=== PATIENT | female | born 1950 | race Caucasian/White ===

== ENCOUNTER → 2016-12-31 | Outpatient (CLI) | payer MEDICARE, OTHER ==
[~2016-12-31] MED LIST: AMLO5TAB2 PO; CIPR500T3 PO; DULO30CA2 PO; GABA300C10 PO; LORA0.5T PO; LOSA100T6 PO; METH2.5T PO; METO-99 PO; METR500T PO; MULT-658 PO; OXYC1TAB7 PO; PANT40TA5 PO; SERT100T5 PO; ZOLP5TAB6 PO
== END | disposition home or self-care (01) ==
LOC: CVU 08:20
PROVIDERS: ATTEND Nurse Practitioner
DX: M25.474 Effusion, right foot (principal); M25.561 Pain in right knee; M25.562 Pain in left knee
CPT/HCPCS: 93970

== ENCOUNTER → 2018-03-10 | Outpatient (CLI) | payer MEDICARE, OTHER | END | disposition home or self-care (01) | LOC: CFH 10:47 | PROVIDERS: ATTEND Nurse Practitioner | DX: Z12.31 Encounter for screening mammogram for malignant neoplasm of breast (principal); Z13.820 Encounter for screening for osteoporosis; M85.88 Other specified disorders of bone density and structure, other site | CPT/HCPCS: 77080; 77067 ==

== ENCOUNTER 2019-01-23 07:54 | Inpatient (IN) | payer MEDICARE, OTHER ==
[~2019-01-23] VITALS: Ht 170.2 cm; Wt 101.2 kg
[~2019-01-23 07:54] MED LIST changes: +AMLO-150 PO; -AMLO5TAB2 PO; +LOSA100T14 PO; -LOSA100T6 PO; +SERT100T32 PO; -SERT100T5 PO
[2019-01-23] MEDS ORDERED: SODIUM CHLORIDE FLUSH 10ML SYR IVF ONE (08:00)
--- NOTE | 2019-01-23 08:12 | NUR ---
LATE NOTE ENTRY FOR 0756: Pt presents to ED by EMS with c/o two days of diffuse abdominal pain in all four quadrants and some abdominal distension. Pt states she has a past medical history of colitis and states the symptoms she is experiencing today are "the same". Pt recieved 100 mcg of Fentanyl and 4 mg of Zofran en route to ED by EMS. Pt recieved PIV en route by EMS in left AC 18 g. Pt states, "my pain is about a 6 now." NADN. Pt connected to NIBP and continous pulse ox. Both bedrails up for safety measures. Call light within reach. No needs expressed at this time. Pt denies cp, sob, diarrhea, blood in vomit, pain with urination, or increase in frequency of urination.
[2019-01-23 08:28] LABS: ALANINE AMINOTRANSFERASE 32 U/L (12-78); ALBUMIN 3.9 g/dL (3.4-5.0); ANION GAP 10 mmol/L (5-15); CALCIUM 9.6 mg/dL (8.5-10.1); CHLORIDE 103 mmol/L (98-107); CREATININE 1.47 mg/dL (0.55-1.02)
[2019-01-23 08:30] LABS: ALKALINE PHOSPHATASE 103 U/L (45-117); BILIRUBIN,TOTAL 0.9 mg/dL (0.2-1.0); TOTAL PROTEIN 8.4 g/dL (6.4-8.2)
--- NOTE | 2019-01-23 09:08 | NUR ---
Pt aware of need for urine sample. Pt provided call light within reach.
[2019-01-23 09:29] LABS: BASOPHILS # (AUTO) 0.02 x10^3/uL (0-0.1); BASOPHILS % (AUTO) 0 % (0-1); EOSINOPHILS % (AUTO) 0 % (1-7); LYMPHOCYTES # (AUTO) 0.93 x10^3/uL (1-3.4); LYMPHOCYTES % (AUTO) 6 % (22-44); MD NO; MEAN CORPUSCULAR HEMOGLOBIN 31.7 pg (27.0-34.8); MEAN CORPUSCULAR HGB CONC 33.7 g/dL (32.4-35.8); MEAN PLATELET VOLUME 9.8 fL (7.4-10.4); MONOCYTES # (AUTO) 0.65 x10^3/uL (0.2-0.8); MONOCYTES % (AUTO) 4 % (2-9); NEUTROPHILS # (AUTO) 13.64 x10^3/uL (1.8-6.8); NEUTROPHILS % (AUTO) 90 % (42-75); PLATELET COUNT 339 x10^3/uL (130-400); RED BLOOD COUNT 5.72 x10^6/uL (3.82-5.3); RED CELL DISTRIBUTION WIDTH 13.5 % (9.6-15.2)
[2019-01-23] MEDS ORDERED: OMNIPAQUE 350 MG/ML, 100ML BOTTLE ONE (09:32)
--- NOTE | 2019-01-23 10:35 | NUR ---
Pt back to room from CT and from using restroom. UA sent. NADN. No needs expressed. Both bed rails up for safety measures.
[2019-01-23] MEDS ORDERED: HYDROmorphone 2 MG/ML, 1ML ONE (10:41)
[2019-01-23] MEDS ORDERED: ONDANSETRON 2MG/ML, 2ML ONE (10:41)
--- NOTE | 2019-01-23 10:49 | NUR ---
Provided pt medication per EMAR for pain 7/10 abdominal pain and headache. Pt apprecaitive. NADN. No other needs requested. Pt on SPO2% monitor and NIBP. Both bed rails up for safety precautions. Call light within reach.
[2019-01-23] MEDS ORDERED: ONDANSETRON 2MG/ML, 2ML IVPush ONE (11:00)
[2019-01-23] MEDS ORDERED: HYDROmorphone 2 MG/ML, 1ML IVPush PRN (11:00)
[2019-01-23 11:16] LABS: MICROSCOPIC INDICATED
[2019-01-23 11:22] LABS: CULTURE INDICATED? YES
[2019-01-23] MEDS ORDERED: CIPROFLOXACIN/PMX 400MG/200ML 100 ML IVPB ONE (12:00)
[2019-01-23] MEDS ORDERED: METRONIDAZOLE PMX 500MG/100ML 100 ML IVPB ONE (12:30)
[2019-01-23] MEDS ORDERED: CIPROFLOXACIN/PMX 400MG/200ML 200 ML ONE (12:50)
[2019-01-23] MEDS ORDERED: LABETALOL 5MG/ML, 20ML IVPush PRN (13:00)
[2019-01-23] MEDS ORDERED: DOCUSATE 100 MG CAPSULE PO PRN (13:00)
[2019-01-23] MEDS ORDERED: hydrALAzine 20 MG/ML, 1ML IVPush PRN (13:00)
[2019-01-23] MEDS ORDERED: POLYETHYLENE GLYCOL 17 GM PACKET PO PRN (13:00)
[2019-01-23] MEDS ORDERED: ACETAMINOPHEN 325 MG TABLET PO PRN (13:00)
[2019-01-23] MEDS ORDERED: morphine SULFATE 10 MG/ML, 1ML IVPush PRN (13:00)
[2019-01-23] MEDS ORDERED: BISACODYL 10 MG SUPP PR PRN (13:00)
[2019-01-23] MEDS ORDERED: OXYcodone IR 5MG TABLET PO PRN (13:00)
--- NOTE | 2019-01-23 13:10 | NUR ---
TASK RN: PT MEDICATED PER EMAR.
[2019-01-23 13:26] LABS: INTERNATIONAL NORMALIZED RATIO 1.04 (0.93-1.1); PROTHROMBIN TIME 10.9 Seconds (9.6-11.5)
--- NOTE | 2019-01-23 13:39 | NUR ---
REPORT FROM [facility]IN[facility].
[2019-01-23 13:40] LABS: THYROID STIMULATING HORMONE 1.56 mIU/L (0.358-3.740)
--- NOTE | 2019-01-23 13:46 | NUR ---
REPORT TO [facility]OME[facility].
[2019-01-23] MEDS ORDERED: SODIUM CHLORIDE FLUSH 10ML SYR IVF PRN (14:00)
--- NOTE | 2019-01-23 14:05 | NUR ---
PT WITH QUESTIONS PRIOR GOING TO FLOOR. PT'S QUESTIONS ANSWERED.
[2019-01-23] MEDS: SODIUM CHLORIDE 0.9% 1,000 ML IV SCH (15:14)
[2019-01-23] MEDS: METRONIDAZOLE PMX 500MG/100ML 100 ML IV SCH ×2 (15:17→21:55)
[2019-01-23] MEDS: PANTOPRAZOLE 40 MG IV IVPush SCH ×2 (15:19→21:55)
[2019-01-23] MEDS: NICOTINE 7 MG/24 HR PATCH.TD24 TD SCH (15:20)
[2019-01-23] MEDS: PROCHLORPERAZINE 5 MG/ML, 2ML IM PRN (15:41)
[2019-01-23 15:53] VITALS: BP 116/81
[2019-01-23] MEDS ORDERED: DEXTROSE 50%, 50ML SYRINGE IVPush PRN (16:30)
[2019-01-23] MEDS: INSULIN LISPRO 100 UNITS/ML, PEN SQ-INSULIN SCH ×2 (16:30→21:00)
[2019-01-23] MEDS ORDERED: DEXTROSE 4 GM TAB.CHEW PO PRN (16:30)
[2019-01-23] MEDS ORDERED: GLUCAGON 1 MG IM PRN (16:30)
[2019-01-23] MEDS: CEFTRIAXONE PMX 1GM/50ML 50 ML IV SCH (16:32)
[2019-01-23 19:39] VITALS: BP 112/78
[2019-01-23] MEDS: SODIUM CHLORIDE FLUSH 10ML SYR IVF SCH (21:55)
[2019-01-24 01:12] VITALS: BP 128/76
[2019-01-24] MEDS: SODIUM CHLORIDE 0.9% 1,000 ML IV SCH ×4 (03:08→20:11)
[2019-01-24] MEDS: METRONIDAZOLE PMX 500MG/100ML 100 ML IV SCH ×4 (03:27→22:32)
[2019-01-24 05:27] LABS: ALBUMIN 3.4 g/dL (3.4-5.0); ANION GAP 10 mmol/L (5-15); CALCIUM 8.8 mg/dL (8.5-10.1); CHLORIDE 104 mmol/L (98-107)
[2019-01-24 05:30] LABS: ALANINE AMINOTRANSFERASE 23 U/L (12-78); ALKALINE PHOSPHATASE 78 U/L (45-117); BILIRUBIN,TOTAL 0.6 mg/dL (0.2-1.0); CREATININE 3.29 mg/dL (0.55-1.02); TOTAL PROTEIN 6.9 g/dL (6.4-8.2)
[2019-01-24 05:44] LABS: BASOPHILS # (AUTO) 0.03 x10^3/uL (0-0.1); BASOPHILS % (AUTO) 0 % (0-1); EOSINOPHILS # (AUTO) 0.01 x10^3/uL (0-0.4); EOSINOPHILS % (AUTO) 0 % (1-7); LYMPHOCYTES # (AUTO) 1.56 x10^3/uL (1-3.4); LYMPHOCYTES % (AUTO) 10 % (22-44); MD NO; MEAN CORPUSCULAR HEMOGLOBIN 31.5 pg (27.0-34.8); MEAN CORPUSCULAR HGB CONC 33.7 g/dL (32.4-35.8); MEAN CORPUSCULAR VOLUME 93.5 fL (80-100); MEAN PLATELET VOLUME 9.8 fL (7.4-10.4); MONOCYTES # (AUTO) 1.36 x10^3/uL (0.2-0.8); MONOCYTES % (AUTO) 9 % (2-9); NEUTROPHILS # (AUTO) 12.35 x10^3/uL (1.8-6.8); NEUTROPHILS % (AUTO) 81 % (42-75); PLATELET COUNT 298 x10^3/uL (130-400); RED CELL DISTRIBUTION WIDTH 13.7 % (9.6-15.2)
[2019-01-24] MEDS ORDERED: SODIUM CHLORIDE 0.9%, 500ML IVBOLUS ONE (06:30)
[2019-01-24] MEDS: INSULIN LISPRO 100 UNITS/ML, PEN SQ-INSULIN SCH ×2 (07:00→11:00)
[2019-01-24] MEDS: SODIUM CHLORIDE FLUSH 10ML SYR IVF SCH ×2 (07:42→20:39)
[2019-01-24] MEDS: PANTOPRAZOLE 40 MG IV IVPush SCH ×2 (09:13→20:39)
[2019-01-24 09:39] VITALS: BP 114/69
[2019-01-24] MEDS ORDERED: CHOL3000 PO (12:01)
[2019-01-24] MEDS ORDERED: SIMV20TA3 PO (12:01)
[2019-01-24] MEDS ORDERED: CALC-151 PO (12:01)
[2019-01-24 12:32] LABS: MICROSCOPIC INDICATED
[2019-01-24 12:39] LABS: CULTURE INDICATED? YES
[2019-01-24] MEDS: NICOTINE 7 MG/24 HR PATCH.TD24 TD SCH (13:29)
[2019-01-24] MEDS ORDERED: PHARMACY MAY ADJ FOR RENAL FX MC PRN (14:00)
[2019-01-24] MEDS: CEFTRIAXONE PMX 1GM/50ML 50 ML IV SCH (14:44)
[2019-01-24 16:08] VITALS: BP 115/70
[2019-01-24] MEDS: GABAPENTIN 300 MG CAPSULE PO SCH ×2 (17:02→20:41)
[2019-01-24] MEDS: PROCHLORPERAZINE 5 MG/ML, 2ML IM PRN (17:46)
[2019-01-24] MEDS ORDERED: SODIUM CHLORIDE 0.9% 1,000 ML IVBOLUS PRN (18:02)
[2019-01-24] MEDS ORDERED: METOPROLOL 1 MG/ML, 5ML ONE (18:20)
[2019-01-24 18:23] LABS: TROPONIN I 0.132 ng/mL (0.000-0.045)
[2019-01-24 18:25] VITALS: BP 153/78
[2019-01-24] MEDS ORDERED: DILTIAZEM 5 MG/ML, 5ML IVPush PRN (18:30)
[2019-01-24] MEDS ORDERED: METOPROLOL 1 MG/ML, 5ML IVPush ONE (18:30)
[2019-01-24] MEDS ORDERED: METOPROLOL TARTRATE 50 MG TABLET PO ONE (18:30)
[2019-01-24] MEDS ORDERED: SODIUM CHLORIDE 0.9% 1,000ML IVBOLUS ONE (18:30)
[2019-01-24 19:32] VITALS: BP 120/81
[2019-01-24 19:51] VITALS: BP_SYST 84; BP_SYST 92; BP_DIAS 58; BP_DIAS 63
[2019-01-24] MEDS ORDERED: HEPARIN 5,000 UNITS/ML, 1ML IV PRN (20:00)
[2019-01-24] MEDS ORDERED: HEPARIN 5,000 UNITS/ML, 1ML IV ONE (20:00)
[2019-01-24] MEDS: HEPARIN 25,000 UNITS/500ML PMX 500 ML IV PRN (20:37)
[2019-01-24] MEDS: DULOXETINE 30 MG CAPSULE.DR PO SCH (20:41)
[2019-01-24] MEDS: SIMVASTATIN 20 MG TABLET PO SCH (20:42)
[2019-01-24] MEDS ORDERED: AMIODARONE 150 MG in DEXTROSE 5% 100 ML IV ONE (22:30)
[2019-01-24] MEDS ORDERED: AMIODARONE 900 MG in DEXTROSE 5% 482 ML IV PRN (22:30)
[2019-01-24] MEDS ORDERED: FILTER 0.22 MICRON IV PRN (23:00)
[2019-01-25 00:49] VITALS: BP 99/64
[2019-01-25 02:43] LABS: BASOPHILS # (AUTO) 0.05 x10^3/uL (0-0.1); BASOPHILS % (AUTO) 1 % (0-1); EOSINOPHILS # (AUTO) 0.02 x10^3/uL (0-0.4); EOSINOPHILS % (AUTO) 0 % (1-7); LYMPHOCYTES # (AUTO) 1.26 x10^3/uL (1-3.4); LYMPHOCYTES % (AUTO) 12 % (22-44); MD NO; MEAN CORPUSCULAR HEMOGLOBIN 31.5 pg (27.0-34.8); MEAN CORPUSCULAR HGB CONC 33.6 g/dL (32.4-35.8); MEAN CORPUSCULAR VOLUME 93.7 fL (80-100); MEAN PLATELET VOLUME 9.1 fL (7.4-10.4); MONOCYTES # (AUTO) 1.03 x10^3/uL (0.2-0.8); MONOCYTES % (AUTO) 10 % (2-9); NEUTROPHILS % (AUTO) 78 % (42-75); PLATELET COUNT 235 x10^3/uL (130-400); RED BLOOD COUNT 4.37 x10^6/uL (3.82-5.3); RED CELL DISTRIBUTION WIDTH 14.1 % (9.6-15.2)
[2019-01-25 02:51] LABS: ALBUMIN 2.8 g/dL (3.4-5.0); ANION GAP 7 mmol/L (5-15); CALCIUM 8.3 mg/dL (8.5-10.1); CHLORIDE 112 mmol/L (98-107); CREATININE 1.94 mg/dL (0.55-1.02)
[2019-01-25] MEDS: METRONIDAZOLE PMX 500MG/100ML 100 ML IV SCH ×4 (04:43→21:46)
[2019-01-25] MEDS: SODIUM CHLORIDE 0.9% 1,000 ML IV SCH ×2 (06:25→17:23)
[2019-01-25] MEDS ORDERED: POTASSIUM CHLORIDE 20 MEQ TAB.ER.PRT PO ONE (07:00)
[2019-01-25 07:21] VITALS: BP 103/57
[2019-01-25 07:40] LABS: TROPONIN I 0.164 ng/mL (0.000-0.045)
[2019-01-25 08:02] VITALS: BP 110/65
[2019-01-25] MEDS ORDERED: CHOLECALCIFEROL 1,000 UNIT TABLET PO SCH (09:00)
[2019-01-25] MEDS: PANTOPRAZOLE 40 MG IV IVPush SCH (09:18)
[2019-01-25] MEDS: DULOXETINE 30 MG CAPSULE.DR PO SCH ×2 (09:18→21:45)
[2019-01-25] MEDS: GABAPENTIN 300 MG CAPSULE PO SCH ×3 (09:19→21:45)
[2019-01-25] MEDS: METOPROLOL TARTRATE 100 MG TABLET PO SCH (09:19)
[2019-01-25] MEDS: SODIUM CHLORIDE FLUSH 10ML SYR IVF SCH ×2 (09:20→21:45)
[2019-01-25 09:58] LABS: TROPONIN I 0.149 ng/mL (0.000-0.045)
[2019-01-25 13:04] VITALS: BP 118/73
[2019-01-25] MEDS: NICOTINE 7 MG/24 HR PATCH.TD24 TD SCH (13:04)
[2019-01-25] MEDS: CEFTRIAXONE PMX 1GM/50ML 50 ML IV SCH (14:41)
[2019-01-25 18:01] LABS: ANA SCREEN NEGATIVE (Negative)
[2019-01-25 18:48] VITALS: BP 115/71
[2019-01-25 21:13] LABS: OCCULT BLOOD POSITIVE (NEGATIVE)
[2019-01-25 21:14] LABS: CLOSTRIDIUM DIFFICILE ANTIGEN NEGATIVE; CLOSTRIDIUM DIFFICILE TOXIN NEGATIVE (Negative)
[2019-01-25] MEDS: PANTOPROZOLE 40MG TABLET PO SCH (21:45)
[2019-01-25] MEDS: SIMVASTATIN 20 MG TABLET PO SCH (21:46)
[2019-01-26] VITALS (9 sets, daily range): BP systolic 124–147; BP diastolic 73–83
[2019-01-26] MEDS: SODIUM CHLORIDE 0.9% 1,000 ML IV SCH ×2 (03:20→12:13)
[2019-01-26] MEDS: METRONIDAZOLE PMX 500MG/100ML 100 ML IV SCH ×4 (03:21→21:44)
[2019-01-26] MEDS: HEPARIN 25,000 UNITS/500ML PMX 500 ML IV PRN (03:28)
[2019-01-26 04:59] LABS: BASOPHILS # (AUTO) 0.04 x10^3/uL (0-0.1); BASOPHILS % (AUTO) 0 % (0-1); EOSINOPHILS % (AUTO) 1 % (1-7); LYMPHOCYTES # (AUTO) 1.26 x10^3/uL (1-3.4); LYMPHOCYTES % (AUTO) 14 % (22-44); MD NO; MEAN CORPUSCULAR HEMOGLOBIN 31.7 pg (27.0-34.8); MEAN CORPUSCULAR HGB CONC 33.8 g/dL (32.4-35.8); MEAN CORPUSCULAR VOLUME 93.6 fL (80-100); MEAN PLATELET VOLUME 9.2 fL (7.4-10.4); MONOCYTES # (AUTO) 0.95 x10^3/uL (0.2-0.8); MONOCYTES % (AUTO) 10 % (2-9); NEUTROPHILS # (AUTO) 6.81 x10^3/uL (1.8-6.8); NEUTROPHILS % (AUTO) 74 % (42-75); PLATELET COUNT 216 x10^3/uL (130-400); RED BLOOD COUNT 4.04 x10^6/uL (3.82-5.3); RED CELL DISTRIBUTION WIDTH 13.9 % (9.6-15.2)
[2019-01-26 05:15] LABS: CHLORIDE 109 mmol/L (98-107)
[2019-01-26 05:18] LABS: ALBUMIN 2.7 g/dL (3.4-5.0); ANION GAP 7 mmol/L (5-15); CALCIUM 8.5 mg/dL (8.5-10.1); CREATININE 1.23 mg/dL (0.55-1.02)
[2019-01-26] MEDS: PANTOPROZOLE 40MG TABLET PO SCH ×2 (06:15→16:05)
[2019-01-26 09:25] LABS: ABSOLUTE RETICS # 0.058 x10^6/uL (0.5-2.5); RED BLOOD COUNT 4.05 x10^6/uL (3.82-5.3); RETICULOCYTE COUNT % 1.43 % (0.5-1.5)
[2019-01-26] MEDS: GABAPENTIN 300 MG CAPSULE PO SCH ×3 (09:26→20:49)
[2019-01-26] MEDS: METOPROLOL TARTRATE 100 MG TABLET PO SCH (09:26)
[2019-01-26] MEDS: DULOXETINE 30 MG CAPSULE.DR PO SCH ×2 (09:26→20:49)
[2019-01-26] MEDS: SODIUM CHLORIDE FLUSH 10ML SYR IVF SCH ×2 (09:27→20:49)
[2019-01-26] MEDS: NICOTINE 7 MG/24 HR PATCH.TD24 TD SCH (12:13)
[2019-01-26] MEDS ORDERED: FENTANYL PF 100 MCG/2ML ONE ×2 (14:11)
[2019-01-26] MEDS ORDERED: FLUMAZENIL 0.1 MG/1 ML, 5ML ONE (14:12)
[2019-01-26] MEDS ORDERED: MIDAZOLAM 1 MG/ML, 5ML ONE (14:12)
[2019-01-26] MEDS ORDERED: NALOXONE 1 MG/ML, 2ML ONE (14:12)
[2019-01-26] MEDS: CEFTRIAXONE PMX 1GM/50ML 50 ML IV SCH (15:27)
[2019-01-26] MEDS: SIMVASTATIN 20 MG TABLET PO SCH (20:50)
[2019-01-26] MEDS ORDERED: metroNIDAZOLE 500 MG TABLET PO SCH (21:00)
[2019-01-27 00:14] VITALS: BP 134/78
[2019-01-27] MEDS: SODIUM CHLORIDE 0.9% 1,000 ML IV SCH (03:07)
[2019-01-27] MEDS: METRONIDAZOLE PMX 500MG/100ML 100 ML IV SCH (03:30)
[2019-01-27 05:02] LABS: BASOPHILS % (AUTO) 0 % (0-1); EOSINOPHILS # (AUTO) 0.12 x10^3/uL (0-0.4); EOSINOPHILS % (AUTO) 1 % (1-7); LYMPHOCYTES # (AUTO) 1.06 x10^3/uL (1-3.4); LYMPHOCYTES % (AUTO) 11 % (22-44); MD NO; MEAN CORPUSCULAR HEMOGLOBIN 31.4 pg (27.0-34.8); MEAN CORPUSCULAR HGB CONC 32.7 g/dL (32.4-35.8); MEAN CORPUSCULAR VOLUME 96.1 fL (80-100); MEAN PLATELET VOLUME 9.4 fL (7.4-10.4); MONOCYTES # (AUTO) 1.02 x10^3/uL (0.2-0.8); MONOCYTES % (AUTO) 11 % (2-9); NEUTROPHILS # (AUTO) 7.14 x10^3/uL (1.8-6.8); NEUTROPHILS % (AUTO) 76 % (42-75); PLATELET COUNT 200 x10^3/uL (130-400); RED CELL DISTRIBUTION WIDTH 13.4 % (9.6-15.2)
[2019-01-27 05:11] LABS: ALBUMIN 2.8 g/dL (3.4-5.0); ANION GAP 9 mmol/L (5-15); CALCIUM 8.3 mg/dL (8.5-10.1); CHLORIDE 106 mmol/L (98-107)
[2019-01-27 05:12] LABS: CREATININE 0.88 mg/dL (0.55-1.02)
[2019-01-27] MEDS: PANTOPROZOLE 40MG TABLET PO SCH (05:33)
[2019-01-27] MEDS ORDERED: METR500T PO (06:49)
[2019-01-27] MEDS ORDERED: CEFD300C37 PO (06:49)
[2019-01-27 07:05] VITALS: BP 137/85
[2019-01-27] MEDS: SODIUM CHLORIDE FLUSH 10ML SYR IVF SCH (08:15)
[2019-01-27] MEDS: GABAPENTIN 300 MG CAPSULE PO SCH (08:22)
[2019-01-27] MEDS: DULOXETINE 30 MG CAPSULE.DR PO SCH (08:23)
[2019-01-27] MEDS: METOPROLOL TARTRATE 100 MG TABLET PO SCH (08:23)
[2019-01-27] MEDS ORDERED: POTASSIUM CHLORIDE 20 MEQ TAB.ER.PRT PO ONE (08:30)
[2019-01-29] MEDS ORDERED: FUROSEMIDE 10 MG/ML ORAL SOL PO SCH (09:00)
== END 2019-01-27 09:38 | disposition home or self-care (01) | DRG 393 ==
LOC: ED 09:32 → EDIP 12:31 → 3NE 14:00 → 5SO 01-24 18:20 → DCLOUNGE 01-27 09:25
PROVIDERS: ADMIT Internal Medicine; ATTEND Internal Medicine
PROC: 0TB13ZX Excision of Left Kidney, Percutaneous Approach, Diagnostic (ICD-10-PCS; principal; 2019-01-26)
DX: K55.039 Acute (reversible) ischemia of large intestine, extent unspecified (principal); N17.0 Acute kidney failure with tubular necrosis; E87.2 Acidosis; N03.9 Chronic nephritic syndrome with unspecified morphologic changes; D71 Functional disorders of polymorphonuclear neutrophils; E87.6 Hypokalemia; G89.29 Other chronic pain; M54.9 Dorsalgia, unspecified; R73.9 Hyperglycemia, unspecified; D75.1 Secondary polycythemia; E61.1 Iron deficiency; K76.0 Fatty (change of) liver, not elsewhere classified; M06.9 Rheumatoid arthritis, unspecified; E78.00 Pure hypercholesterolemia, unspecified; E78.5 Hyperlipidemia, unspecified; F17.290 Nicotine dependence, other tobacco product, uncomplicated; F41.9 Anxiety disorder, unspecified; F32.9 Major depressive disorder, single episode, unspecified; I10 Essential (primary) hypertension; I48.0 Paroxysmal atrial fibrillation; K21.9 Gastro-esophageal reflux disease without esophagitis; Z88.2 Allergy status to sulfonamides
CPT/HCPCS: 36415; 50200; 71045; 74177; 76770; 77012; 80048; 80053; 81001; 82040; 82272; 82436; 82570; 82728; 82962; 82977; 83036; 83520; 83540; 83550; 83605; 83690; 83735; 84133; 84156; 84300; 84443; 84466; 84484; 85025; 85045; 85520; 85610; 86038; 86160; 86162; 86256; 87040; 87086; 87324; 88300; 93005; 93306; 96374; 96375; 99156; 99157; G0378; J0696; J0744; J1170; J1644; J2250; J2405; J3010; Q9967; C9113; J0780; J2310; J7030; J7040

== ENCOUNTER 2019-06-19 09:26 | Inpatient (IN) | payer MEDICARE, OTHER ==
[~2019-06-19] VITALS: Ht 170.2 cm; Wt 90.5 kg
[~2019-06-19 09:26] MED LIST changes: +CALC-151 PO; +CEFD300C37 PO; +CHOL3000 PO; +SIMV20TA3 PO
--- NOTE | 2019-06-19 09:43 | NUR ---
Pt assessed. Crushing CP without SOB that started at 0800 while in bed this am. Called EMS, pt was in a-fib with RVR (has hx afib on eloquis, pt reports she has been off med because of epistaxis past 4 days). Pt was given 10 mg Cardizem at 0910 which slowed her rate to low 100's. Also given 4mg zofran and 200 mls NS in route. Pt reports 4/10 chest pain at this time, states she has had a headache and "not feeling good" for past few days. Will cont to monitor, pt in a-fib at this time with rate in the 130-140's. EKG complete.
[2019-06-19] MEDS ORDERED: ATOR10TA9 PO (09:53)
[2019-06-19] MEDS ORDERED: APIX2.5T PO (09:56)
[2019-06-19] MEDS ORDERED: AMOX125T PO (09:57)
[2019-06-19] MEDS ORDERED: OXYC1TAB7 PO (09:59)
[2019-06-19] MEDS ORDERED: SODIUM CHLORIDE FLUSH 10ML SYR IVF ONE (10:30)
[2019-06-19] MEDS ORDERED: TOFA5TAB PO (10:31)
[2019-06-19 10:38] LABS: BASOPHILS # (AUTO) 0.01 x10^3/uL (0-0.1); BASOPHILS % (AUTO) 0 % (0-1); EOSINOPHILS # (AUTO) 0.06 x10^3/uL (0-0.4); EOSINOPHILS % (AUTO) 1 % (1-7); LYMPHOCYTES # (AUTO) 0.95 x10^3/uL (1-3.4); LYMPHOCYTES % (AUTO) 8 % (22-44); MD NO; MEAN CORPUSCULAR HGB CONC 32.9 g/dL (32.4-35.8); MEAN CORPUSCULAR VOLUME 94.4 fL (80-100); MEAN PLATELET VOLUME 9.2 fL (7.4-10.4); MONOCYTES # (AUTO) 0.99 x10^3/uL (0.2-0.8); MONOCYTES % (AUTO) 9 % (2-9); NEUTROPHILS # (AUTO) 9.31 x10^3/uL (1.8-6.8); NEUTROPHILS % (AUTO) 82 % (42-75); PLATELET COUNT 315 x10^3/uL (130-400); RED BLOOD COUNT 4.64 x10^6/uL (3.82-5.3); RED CELL DISTRIBUTION WIDTH 15.2 % (9.6-15.2)
--- NOTE | 2019-06-19 10:39 | NUR ---
Pt report she is feeling better at this time, "just tired". Pt currently in NSR. Will cont to monitor, no needs at this time
[2019-06-19 10:49] LABS: ALBUMIN 3.3 g/dL (3.4-5.0); ANION GAP 6 mmol/L (5-15); CALCIUM 9.1 mg/dL (8.5-10.1); CHLORIDE 105 mmol/L (98-107); CREATININE 1.29 mg/dL (0.55-1.02)
[2019-06-19 10:54] LABS: TROPONIN I 0.085 ng/mL (0.000-0.045)
[2019-06-19] MEDS ORDERED: OXYcodone/APAP 5/325MG TABLET PO ONE (11:00)
[2019-06-19] MEDS ORDERED: OXYcodone/APAP 5/325MG TABLET ONE (11:09)
--- NOTE | 2019-06-19 11:15 | NUR ---
MEDICATED PER EMAR. PT DENIES FURTHER NEEDS AT THIS TIME.
--- NOTE | 2019-06-19 11:39 | NUR ---
Rounded on pt, remains in sinus rhythm. Updated on plan for admit, at BS. No needs at this time. Will cont to monitor
[2019-06-19] MEDS ORDERED: ASPIRIN 81 MG TABLET CHEW ONE (11:53)
[2019-06-19] MEDS ORDERED: ASPIRIN 81 MG TABLET CHEW PO ONE ×2 (12:00→16:00)
[2019-06-19] MEDS ORDERED: ONDANSETRON 2MG/ML, 2ML ONE ×2 (12:12→16:42)
[2019-06-19] MEDS ORDERED: ONDANSETRON 2MG/ML, 2ML IVPush ONE (12:30)
--- NOTE | 2019-06-19 13:31 | NUR ---
Rounded on pt, no needs at this time. Updated on POC. Remains in NSR. Will cont to monitor
[2019-06-19] MEDS ORDERED: NITROGLYCERIN 0.4 MG BOTTLE (25 TABS) SL PRN (15:30)
[2019-06-19] MEDS ORDERED: ASPIRIN 325 MG TABLET EC PO ONE (15:30)
[2019-06-19] MEDS ORDERED: morphine SULFATE 10 MG/ML, 1ML IV PRN (15:30)
[2019-06-19 16:13] VITALS: BP 139/64
[2019-06-19 16:36] LABS: CHOLESTEROL, TOTAL 177 mg/dL (140-239); TRIGLYCERIDES 164 mg/dL (50-200); VLDL CHOLESTEROL 33 mg/dL (0-25)
[2019-06-19 16:39] LABS: CHOL/HDL RATIO 2.3; HDL CHOL % 44 % (28-40); HDL CHOLESTEROL (DIRECT) 77 mg/dL (40-60); LDL CHOLESTEROL,CALCULATED 67 mg/dL (54-169); LDL/HDL RATIO 0.9 (0.5-3.0); TROPONIN I 0.101 ng/mL (0.000-0.045)
[2019-06-19] MEDS ORDERED: PHARMACY MAY ADJ FOR RENAL FX MC PRN (17:00)
[2019-06-19] MEDS: ONDANSETRON 2MG/ML, 2ML IVPush PRN ×2 (17:10→22:23)
[2019-06-19] MEDS: GABAPENTIN 300 MG CAPSULE PO SCH ×2 (17:10→22:22)
[2019-06-19 18:55] VITALS: BP 125/78
[2019-06-19] MEDS ORDERED: AMOXICILLIN PO SCH (21:00)
[2019-06-19] MEDS ORDERED: CLAV PO SCH (21:00)
[2019-06-19 22:21] VITALS: BP 136/76
[2019-06-19] MEDS: ATORVASTATIN 10 MG TABLET PO SCH (22:22)
[2019-06-19] MEDS: METOPROLOL TARTRATE 100 MG TABLET PO SCH (22:22)
[2019-06-19] MEDS: SODIUM CHLORIDE FLUSH 10ML SYR IVF SCH (22:25)
[2019-06-19] MEDS: OXYcodone/APAP 5/325MG TABLET PO PRN (22:33)
[2019-06-19 22:51] LABS: TROPONIN I 0.087 ng/mL (0.000-0.045)
[2019-06-20] MEDS ORDERED: TEMAZEPAM 15 MG CAPSULE PO ONE (00:30)
[2019-06-20 00:49] VITALS: BP 129/76
[2019-06-20] MEDS: ASPIRIN 325 MG TABLET EC PO SCH (05:26)
[2019-06-20 06:08] LABS: ANION GAP 9 mmol/L (5-15); CALCIUM 9.3 mg/dL (8.5-10.1); CHLORIDE 104 mmol/L (98-107); CREATININE 1.53 mg/dL (0.55-1.02)
[2019-06-20 06:40] VITALS: BP 130/84
[2019-06-20 09:40] VITALS: BP 130/78
[2019-06-20] MEDS: SODIUM CHLORIDE FLUSH 10ML SYR IVF SCH ×2 (09:41→21:13)
[2019-06-20] MEDS: OXYcodone/APAP 5/325MG TABLET PO PRN ×2 (09:43→21:09)
[2019-06-20] MEDS: AMOXICILLIN/CLAV 500-125MG TABLET PO SCH ×2 (09:44→21:11)
[2019-06-20] MEDS: METOPROLOL TARTRATE 100 MG TABLET PO SCH ×2 (09:44→21:10)
[2019-06-20] MEDS: PANTOPROZOLE 40MG TABLET PO SCH (09:44)
[2019-06-20] MEDS: GABAPENTIN 300 MG CAPSULE PO SCH ×3 (09:44→21:10)
[2019-06-20] MEDS: DULOXETINE 30 MG CAPSULE.DR PO SCH (09:45)
[2019-06-20 14:07] VITALS: BP 127/82
[2019-06-20 18:57] VITALS: BP 127/82
[2019-06-20 21:06] VITALS: BP 137/79
[2019-06-20] MEDS: ATORVASTATIN 10 MG TABLET PO SCH (21:12)
[2019-06-21 01:14] VITALS: BP 121/77
[2019-06-21] MEDS: ASPIRIN 325 MG TABLET EC PO SCH (05:41)
[2019-06-21 07:30] VITALS: BP 148/81
[2019-06-21] MEDS: OXYcodone/APAP 5/325MG TABLET PO PRN (08:19)
[2019-06-21] MEDS: PANTOPROZOLE 40MG TABLET PO SCH (08:19)
[2019-06-21] MEDS: DULOXETINE 30 MG CAPSULE.DR PO SCH (08:20)
[2019-06-21] MEDS: METOPROLOL TARTRATE 100 MG TABLET PO SCH (08:20)
[2019-06-21] MEDS: GABAPENTIN 300 MG CAPSULE PO SCH (08:20)
[2019-06-21] MEDS: AMOXICILLIN/CLAV 500-125MG TABLET PO SCH (08:22)
[2019-06-21] MEDS: SODIUM CHLORIDE FLUSH 10ML SYR IVF SCH (08:23)
[2019-06-21 15:43] VITALS: BP 125/77
== END 2019-06-21 16:37 | disposition home health service (06) | DRG 308 ==
LOC: ED 11:36 → EDIP 11:37 → INTOOBSV 11:37 → ED 11:49 → 5SO 15:56 → OBSVTOIN 17:05 → DCLOUNGE 06-21 16:16
PROVIDERS: ADMIT Internal Medicine; ATTEND Internal Medicine
DX: I48.0 Paroxysmal atrial fibrillation (principal); J96.01 Acute respiratory failure with hypoxia; D68.69 Other thrombophilia; R07.89 Other chest pain; E66.9 Obesity, unspecified; Z68.31 Body mass index [BMI] 31.0-31.9, adult; E78.5 Hyperlipidemia, unspecified; F17.290 Nicotine dependence, other tobacco product, uncomplicated; I10 Essential (primary) hypertension; I25.10 Atherosclerotic heart disease of native coronary artery without angina pectoris; K76.0 Fatty (change of) liver, not elsewhere classified; Z91.018 Allergy to other foods; Z91.012 Allergy to eggs; M06.9 Rheumatoid arthritis, unspecified; Z88.2 Allergy status to sulfonamides; Z87.19 Personal history of other diseases of the digestive system
CPT/HCPCS: 36415; 71045; 78582; 80048; 80061; 82040; 84484; 85025; 93005; 93306; 96374; G0378; J2405; A9540; A9558; C9898